=== PATIENT | female | born 1980 | race Caucasian/White ===

== ENCOUNTER → 2020-02-10 13:07 | Outpatient (CLI) | payer BC, SELFPAY ==
--- NOTE | ~2020-02-10 | US_ITS ---
EXAMINATION: US pelvic complete w TV DATE: 02/10/2020 13:32 INDICATION: Menorrhagia Comparison:No prior studies for comparison. TECHNIQUE: Multiple transabdominal and endovaginal sonographic images of the pelvis performed. FINDINGS: The uterus measures 7.5 x 3.9 x 5.2 cm. There is a uterine fibroid anteriorly in the uterus measuring 2.3 x 2 x 2.3 cm The endometrial complex measures 4.9 mm. The right ovary measures 1.9 x 1 x 1.3 cm and the left ovary measures 2.5 x 0.9 x 2.1 cm. There are small follicles in each ovary. There is no free fluid in the pelvis. There are no abnormal masses seen on either side. IMPRESSION: 1. Uterine fibroid measuring 2.3 cm maximum dimension. Reviewed, dictated and finalized at location A. [facility] [place]
== END ==
PROVIDERS: Visit Provider Obstetrics & Gynecology
DX: R10.2 Pelvic and perineal pain (principal); D25.9 Leiomyoma of uterus, unspecified
CPT/HCPCS: 76830; 76856

== ENCOUNTER → 2020-04-03 01:42 | Outpatient (CLI) | payer BC, SELFPAY ==
[2020-04-03 23:34] LABS: SARS-CoV-2 RNA PCR Negative
== END ==
PROVIDERS: Visit Provider Obstetrics & Gynecology
DX: N93.9 Abnormal uterine and vaginal bleeding, unspecified (principal); Z01.818 Encounter for other preprocedural examination
CPT/HCPCS: C9803; U0003; U0005

== ENCOUNTER 2020-04-07 00:50 | Day surgery (SDC) | payer BC, SELFPAY ==
[2020-03-29 16:22] VITALS: BMI 33.9
[2020-04-07] VITALS (9 sets, daily range): BP systolic 108–134; BP diastolic 60–84; PULSE 101–140; RESP 16–20; TEMP 36.5–36.6; O2SAT 95–100; BMI 34.2
--- NOTE | 2020-04-07 05:15 | PM.IMHP ---
H&P: HPI History of Present Illness Date/Time: 04/07/20 05:15 Chief Complaint: Irregular bleeding and pelvic pain. Narrative: Gucci Weldon is a 39 year old female with a history of chronic pelvic pain and irregular bleeding for approximately a year. She has been tried on progesterone only control pill and this has helped but not completely resolved the abnormal bleeding. The menorrhagia has improved but she still had intermenstrual spotting. She was offered combined oral contraceptive pill for regularity she declined. She has been having pelvic pain for years. She had some improvement with physical therapy but not complete resolution. She had ultrasound showed fibroid. She is aware that she may have scar tissue with her history of cesearean sections. She was offered laparoscopy or trial of other hormonal contraception options. Pain was improving. She was offered expectant management but she wants a laparoscopy since has been going on for a while. She has been informed of risk and benefits of laparoscopy and hysteroscopy which she agrees to this. Review of Systems Review of Systems: All systems reviewed & are unremarkable except as noted in HPI and below Cardiovascular: Cardiovascular: Reports no additional cardiovascular complaints, Denies chest pain and Denies dyspnea Respiratory: Respiratory: Reports no additional respiratory complaints and Denies dyspnea Gastrointestinal: Gastrointestinal: Reports abdominal pain, Denies change in bowel habits, Denies diarrhea, Denies nausea and Denies vomiting Genitourinary: Genitourinary: Reports pelvic pain Musculoskeletal: Musculoskeletal: Reports back pain Integumentary/Breasts: Skin/Breast: Reports system reviewed and no additional complaints, except as docu Neurologic: Reports system reviewed and no additional complaints, except as documented PMFSH Past Medical History Medical History Acid reflux Asthma Surgical History Surgical History deliv NOS-unsp x3 H/O tubal ligation History of dilatation and curettage x3 Status post hysteroscopic resection of uterine septum [place] teeth extracted Family History Family History Grandparent Diabetes mellitus Social History Social History Smoking status: Never smoker Alcohol intake: current Drinks per week: 1 Substance use: never Living arrangements: with family Gender identity (if verbalized by the patient): Female Spiritual care concerns: No Meds Home Medications and Allergies Home Medications Medication Instructions Recorded Confirmed Type albuterol sulfate 1 puff INHALATION PRN 03/29/20 04/07/20 History diphenhydramine HCl [Benadryl] 25 mg PO Q6H PRN 03/29/20 04/07/20 History doxylamine succinate [Unisom 25 mg PO HS PRN 03/29/20 04/07/20 History (doxylamine)] famotidine [Pepcid] 40 mg PO DAILY 03/29/20 04/07/20 History ibuprofen 800 mg PO DAILY 03/29/20 04/07/20 History Allergies Allergy/AdvReac Type Severity Reaction Status Date / Time iodine Allergy Intermediate Rash Verified 04/07/20 06:41 shellfish derived Allergy Intermediate rash Verified 04/07/20 06:41 alpha gal Allergy Severe Anaphylaxis Uncoded 04/07/20 06:41 Exam Const: Orientation/consciousness: oriented to person and oriented to place HENMT: Head: normal to inspection Eyes: General: appearance normal, both eyes and all related structures Resp: Effort & Inspection: normal respiratory effort Auscultation: clear to auscultation bilaterally Cardio: Rate: regular rate Rhythm: regular rhythm GI: Inspection: normal to inspection GI Palp: No Rebound tenderness present Neuro: General: oriented to person and oriented to place Cognition (Neuro): normal cognition Extrem: General: norm
--- NOTE | 2020-04-07 07:25 | WPDHPUPDATE1 ---
History and Physical Update Update Date/Time: 04/07/20 07:25 History and Physical has been reviewed, including an updated exam of the patient. There are NO changes in the patient's condition. Risks, benefits, and alternatives have been discussed and questions answered. Patient agrees to proceed with procedure.
[2020-04-07] MEDS: ACETAMINOPHEN 500 MG TABLET 1000 MG PO (07:28)
[2020-04-07] MEDS: KETOROLAC 15 MG/ML VIAL (*BKC) IV PUSH (07:28)
--- NOTE | 2020-04-07 07:54 | P.PNAN_ITS ---
Anes - Initial Pre Proc Eval Procedure: Operation Date: 04/07/20 08:30 Proposed Procedures p Diagnostic Laparoscopy, Hysteroscopy, Dilatation and Curettage, Possible Myosure - Manuel Bashir MD Date/Time: 04/07/20 07:54 Surgeon: Manuel Bashir MD Pre Op Diagnosis: abnormal bleeding Patient Data Age: 39 Gender: F Height: 5 ft 6 in Weight: 96.1 kg Last Vital Signs Temp 36.6 C 04/07/20 07:15 Pulse 104 H 04/07/20 07:15 Resp 18 04/07/20 07:15 BP 125/84 04/07/20 07:15 Pulse Ox 100 04/07/20 07:15 Allergies Allergy/AdvReac Type Severity Reaction Status Date / Time iodine Allergy Intermediate Rash Verified 04/07/20 06:41 shellfish derived Allergy Intermediate rash Verified 04/07/20 06:41 alpha gal Allergy Severe Anaphylaxis Uncoded 04/07/20 06:41 Home Medications Medication Instructions Recorded Confirmed Type albuterol sulfate 1 puff INHALATION PRN 03/29/20 04/07/20 History diphenhydramine HCl [Benadryl] 25 mg PO Q6H PRN 03/29/20 04/07/20 History doxylamine succinate [Unisom 25 mg PO HS PRN 03/29/20 04/07/20 History (doxylamine)] famotidine [Pepcid] 40 mg PO DAILY 03/29/20 04/07/20 History ibuprofen 800 mg PO DAILY 03/29/20 04/07/20 History Patient hx anesthesia problems: none Family hx anesthesia problems: none PMFSH Past Medical History Medical History Acid reflux Asthma Surgical History Surgical History deliv NOS-unsp x3 H/O tubal ligation History of dilatation and curettage x3 Status post hysteroscopic resection of uterine septum [place] teeth extracted Family History Family History Grandparent Diabetes mellitus Social History Social History Smoking status: Never smoker Alcohol intake: current Drinks per week: 1 Substance use: never Living arrangements: with family Gender identity (if verbalized by the patient): Female Spiritual care concerns: No Anes - Eval Final PreProcedure Day of Procedure 04/07/20 07:54 Patient weight: obese Heart: regular rate and rhythm Lungs: clear to auscultation Airway: Mallampati scale class II Neurological: alert and oriented Last oral intake: >/= 8 hours ASA classification: III Emergent: no Anesthetic plan: proceed Anesthesia type and monitoring: general ETT and standard monitoring Informed Consent: The patient's anesthetic plan and its attendant risks and benefits were discussed with the patient/family/POA. Questions were solicited and answers provided to the satisfaction of the patient/family/POA.
[2020-04-07] MEDS: LACTATED RINGERS 1,000 ML 30 ML IV CONT ×2 (07:58→10:00)
[2020-04-07] MEDS: SCOPOLAMINE 1.5 MG PATCH TRANSDERM (07:58)
[2020-04-07] MEDS: ceFAZolin 2 GM/D5W 50 ML 2 GM/50 ML BAG IVPB (08:18)
[2020-04-07] MEDS: BUPIVACAINE HCL 0.5% PF 30 ML VIAL INFILTRATE (08:38)
--- NOTE | 2020-04-07 09:43 | SUR.OPER ---
Hysteroscopy start [id number]
[2020-04-07] MEDS: diphenhydrAMINE HCl INJ 50 MG/ML VIAL 25 MG IV PUSH (10:15)
[2020-04-07] MEDS: ONDANSETRON INJ 4 MG/2 ML VIAL IV PUSH (10:16)
--- NOTE | 2020-04-07 11:12 | PM.PROC ---
Procedure Note - Detailed Date of procedure: 04/07/20 Pre-op diagnosis: abnormal bleeding Chronic pelvic pain Post-op diagnosis: same Procedure performed: 1. Operative laparoscopy 2. Lysis of adhesions 3. Diagnostic hysteroscopy and dilation and curettage. 4. Anterior cul-de-sac biopsies laparoscopically Description of procedure: After informed consent was obtained patient was taken to operating room. She was placed in low lithotomy position and prepped and general endotracheal anesthesia was administered. She was prepped and draped in sterile fashion. Attention was turned to the vagina speculum was inserted single-tooth tenaculum placed on anterior lip of the cervix and acorn uterine manipulator was placed into the cervical canal. The speculum was removed. With new sterile gloves attention was turned to the abdomen a small horizontal incision was made at the umbilicus with the scalpel. The subcutaneous tissue was dissected down to the fascia. The fascia was grabbed with clamps and was incised. The preperitoneal fat was palpated and the peritoneal was entered. by palpation there is noted to be scarring which was of the omentum to just to the inferior of the incision. The Mims port was inserted and secured with 0 Vicryl sutures that were placed at the fascia. Pneumoperitoneum was obtained to 15 mmHg. Patient was placed in Trendelenburg position. Attention was turned to the right side which did not have any adhesions an incision was made and a 5 mm port was inserted under laparoscopic visualization. Using Endo Yamila with cautery the band omentum that was attached to the anterior abdomen immediately below the umbilicus was cauterized and cut from the abdominal area. Prior to removing the scar tissue of the omentum it was noted that the intestines was inferior to this but it looked like the omentum was pulling some of the intestines up but the intestines was at least 5 cm below the attached to the anterior abdomen. Hemostasis was noted at the omentum after it was removed. Attention was turned to the left side and since the scar tissue was removed visualization was obtained and a 5 mm port was inserted. A biopsy was performed at an area on the anterior uterus that was a white plaque is possible endometriosis this was removed with biopsy forceps and cauterized there were also some inflammatory type mucoid areas on the left side of the anterior cul-de-sac and this was biopsied. The posterior cul-de-sac the fallopian tubes were evidence of a prior tubal ligation. The abdominal ports were removed the pneumoperitoneum was released the patient was taken out of Trendelenburg position the 2 fascial sutures that were placed to secure the his son were approximated together and good closure of the fascia was noted. The skin incisions were then closed in a subcuticular fashion with 4 O Vicryl and Dermabond was placed. Attention was then turned to the vagina speculum was inserted the acorn manipulator was removed the uterus was sounded to 8 cm. The cervix was dilated to an 8 Reyes dilator. The hysteroscope was inserted there was noted to be what looked like a remnant of a septum on her right fundal area is septum appeared to be attenuated and to approximately a few cm into the body on the right side of the uterus. Both ostia were visualized. There were no polyps. No other endometrial abnormalities were noted. The uterine lining did appear dyssynchronous. A curettage was performed. The tenaculum was removed hemostasis was noted at the site speculum was removed the patient tolerated procedure well she was extubated in operating room the sponge count was correct she was taken to recovery in stable condition. Anesthesia: GETA Surgeon: Manuel Bashir MD Estimated blood loss (mL): 5 Drains: No Packing: No Pathology: yes (1. Anterior cul de sac biopsies.) Complications: None Condition: stable Disposition: PACU Findings: Adhesion of the omentum to the umbilicus
[2020-04-07] MEDS: oxyCODONE HCL (*CRX) 5 MG TAB IR PO (11:30)
== END 2020-04-07 12:10 | disposition home or self-care (01) ==
PROVIDERS: Visit Provider Obstetrics & Gynecology
PROC: 0UDB8ZZ Extraction of Endometrium, Via Natural or Artificial Opening Endoscopic (ICD-10-PCS; CPT 58558; principal; 2020-04-07 08:30)
DX: N92.0 Excessive and frequent menstruation with regular cycle (principal); R10.2 Pelvic and perineal pain; N73.6 Female pelvic peritoneal adhesions (postinfective); G89.29 Other chronic pain; J45.909 Unspecified asthma, uncomplicated; K21.9 Gastro-esophageal reflux disease without esophagitis
CPT/HCPCS: 49321; 58558; 88305; A9270; J0330; J0690; J1100; J1170; J1200; J1885; J2250; J2405; J2704; J7030; J7120

== ENCOUNTER → 2020-09-15 11:38 | Outpatient (CLI) | payer BC, SELFPAY ==
--- NOTE | ~2020-09-15 | US_ITS ---
EXAMINATION: US thyroid DATE: 09/15/2020 11:54 INDICATION: Nontoxic goiter with palpable lump at the left neck TECHNIQUE: Multiple ultrasound images of the thyroid were obtained. COMPARISON: None. FINDINGS: The right thyroid lobe measures 4.1 x 1.7 x 1.4 cm. The left thyroid lobe measures 3.5 x 2.6 x 3.1 c m. 4.1 x 2.3 x 4.9 cm wider than tall solid isoechoic mass with smooth margins and without echogenic foci in the left thyroid lobe (TI-RADS 3, mildly suspicious , FNA if >=2.5 cm, annual followup is >= 1.5 cm). There are couple smaller predominantly solid hypoechoic wider than tall nodules with smooth margins and without echogenic foci in the right thyroid lobe (TI-RADS 4, moderately suspicious , FNA if >=1.5 cm, annual followup is >=1 cm) measuring 1.4 cm and 5 mm. There is normal echotexture, echog enicity and vascular flow throughout the thyroid gland. IMPRESSION: 1. Multinodular goiter. Recommend ultrasound-guided biopsy of the 4.9 cm left thyroid nodule. Reviewed, dictated and finalized at location A. IMPRESSION: 1. Multinodular goiter. Recommend ultrasound-guided biopsy of the 4.9 cm left t hyroid nodule.
== END ==
PROVIDERS: Visit Provider Obstetrics & Gynecology
DX: E04.2 Nontoxic multinodular goiter (principal)
CPT/HCPCS: 76536

== ENCOUNTER 2020-11-05 01:38 | Day surgery (SDC) | payer BC, SELFPAY ==
[2020-10-28 14:07] VITALS: BMI 32.5
--- NOTE | 2020-11-04 08:28 | PM.IMHP ---
H&P: HPI History of Present Illness Date/Time: 11/04/20 08:28 Chief Complaint: thyroid goiter left, thyroid nodule left, choking, gagging, coughing, neck mass left Narrative: 32-year-old female presents with a neck mass likely very large thyroid goiter per ultrasound. No changes in symptoms no change in history. Presents for planned surgical excision. Review of Systems Constitutional: Constitutional: Denies fatigue, Denies fever(s) and Denies lethargy Eyes: Eyes: Denies blurry vision and Denies change in vision ENT: Reports as per HPI Cardiovascular: Cardiovascular: Denies chest pain Respiratory: Respiratory: Denies cough Endocrine: Endocrine: Denies fatigue Hematologic/Lymphatic: Hematologic/Lymphatic: Denies easy bleeding, Denies easy bruising and Denies lymphadenopathy Allergic/Immunologic: Allergic/Immunologic: Denies seasonal rhinorrhea [facility] Past Medical History Medical History Acid reflux Asthma Surgical History Surgical History deliv NOS-unsp x3 H/O tubal ligation History of dilatation and curettage x3 History of hysteroscopy S/P laparoscopic procedure Status post hysteroscopic resection of uterine septum [place] teeth extracted Family History Family History Grandparent Diabetes mellitus Grandparent Diabetes mellitus Breast cancer Hypertension Mother Depression Other Family history of malignant neoplasm of breast Social History Social History Smoking status: Never smoker Alcohol intake: current Drinks per week: 1 Alcohol use details: VERY RARELY Substance use: never Substance use type: does not use Living arrangements: with family Gender identity (if verbalized by the patient): Female Spiritual care concerns: No Meds Home Medications and Allergies Home Medications Medication Instructions Recorded Confirmed Type famotidine [Pepcid] 20 mg PO BID 03/29/20 10/28/20 History drospirenone (contraceptive) 4 mg 4 mg PO DAILY 90 Days #91 tablet 09/02/20 10/28/20 Rx (28) tablet Allergies Allergy/AdvReac Type Severity Reaction Status Date / Time iodine Allergy Intermediate Rash Verified 10/28/20 14:04 shellfish derived Allergy Intermediate rash Verified 10/28/20 14:04 alpha gal Allergy Severe Anaphylaxis Uncoded 10/28/20 14:04 Exam Const: General: cooperative, healthy appearing, comfortable, well developed and alert HENMT: Head: normal to inspection, normocephalic and atraumatic Ears: hearing grossly normal bilaterally, external ears normal, TM's normal bilaterally and EAC's normal General nose exam: Normal external nose present, Normal nares present, No nasal polyps present, Normal nasal mucous membranes and turbinates present and Normal septum present Face and sinus: normal facial exam Mouth: Yes Normal oral and palatal mucosa present, Yes lip normal, Yes tongue normal, Yes oropharynx normal and Yes moist mucous membranes Teeth and gingiva: dentition normal and gingiva normal Throat: posterior oropharynx normal, tonsils normal and uvula midline Eyes: General: appearance normal, both eyes and all related structures Periorbital: periorbital findings normal Eyelids: eyelids normal Conjunctivae: conjunctivae normal Sclera: sclerae normal Neck: Neck: normal visual inspection, full ROM and no lymphadenopathy Thyroid: abnormal thyroid, asymmetrical, lateral enlargement and mass Lymphatic: no lymphadenopathy noted Resp: Effort & Inspection: normal respiratory effort and able to speak in complete sentences Cardio: Jugular venous distension: no JVD Neuro: Cranial nerves: Yes CN's II-XII intact bilaterally Assessment and Plan Assessment and plan (1) Dysphagia: Code(s): R13.10 - Dysphagia, unspecified
[2020-11-05] VITALS (11 sets, daily range): BP systolic 117–130; BP diastolic 74–87; PULSE 92–133; RESP 10–20; TEMP 36.4–36.8; O2SAT 96–100
--- NOTE | 2020-11-05 07:08 | WPDHPUPDATE1 ---
History and Physical Update Update Date/Time: 11/05/20 07:08 History and Physical has been reviewed, including an updated exam of the patient. There are NO changes in the patient's condition. Risks, benefits, and alternatives have been discussed and questions answered. Patient agrees to proceed with procedure.
[2020-11-05] MEDS: ACETAMINOPHEN 500 MG TABLET 1000 MG PO (07:27)
[2020-11-05] MEDS: LACTATED RINGERS 1,000 ML 30 ML IV CONT ×2 (07:48→10:51)
--- NOTE | 2020-11-05 08:01 | P.PNAN_ITS ---
Anes - Initial Pre Proc Eval Procedure: Operation Date: 11/05/20 07:45 Proposed Procedures p Left Thyroidectomy - Cale Samuels MD Date/Time: 11/05/20 08:01 Surgeon: Cale Samuels MD Pre Op Diagnosis: Left thyroid goiters Patient Data Age: 40 Gender: F Height: 1.69 m Weight: 92.5 kg Last Vital Signs Temp 36.8 C 11/05/20 06:10 Pulse 92 11/05/20 06:10 Resp 16 11/05/20 06:10 BP 130/78 11/05/20 06:10 Pulse Ox 100 11/05/20 06:10 Allergies Allergy/AdvReac Type Severity Reaction Status Date / Time iodine Allergy Intermediate Rash Verified 11/05/20 06:15 shellfish derived Allergy Intermediate rash Verified 11/05/20 06:15 alpha gal Allergy Severe Anaphylaxis Uncoded 10/28/20 14:04 Home Medications Medication Instructions Recorded Confirmed Type famotidine [Pepcid] 20 mg PO BID 03/29/20 11/05/20 History drospirenone (contraceptive) 4 mg 4 mg PO DAILY 90 Days #91 tablet 09/02/20 11/05/20 Rx (28) tablet Patient hx anesthesia problems: post op nausea/vomiting Family hx anesthesia problems: none Results Review: All pre-operative results and documents have been reviewed as part of the pre-operative evaluation. [facility] Past Medical History Medical History Acid reflux Asthma Surgical History Surgical History deliv NOS-unsp x3 H/O tubal ligation History of dilatation and curettage x3 History of hysteroscopy S/P laparoscopic procedure Status post hysteroscopic resection of uterine septum [place] teeth extracted Family History Family History Grandparent Diabetes mellitus Grandparent Diabetes mellitus Breast cancer Hypertension Mother Depression Other Family history of malignant neoplasm of breast Social History Social History Smoking status: Never smoker Alcohol intake: current Drinks per week: 1 Alcohol use details: VERY RARELY Substance use: never Substance use type: does not use Living arrangements: with family Gender identity (if verbalized by the patient): Female Spiritual care concerns: No Anes - Eval Final PreProcedure Day of Procedure 11/05/20 08:01 Patient weight: obese Heart: regular rate and rhythm Lungs: clear to auscultation Airway: Mallampati scale class II Neurological: alert and oriented Last oral intake: >/= 8 hours ASA classification: II Emergent: no Anesthetic plan: proceed Anesthesia type and monitoring: general ETT and standard monitoring Results Review: All pre-operative results and documents have been reviewed as part of the pre-operative evaluation. Informed Consent: The patient's anesthetic plan and its attendant risks and benefits were discussed with the patient/family/POA. Questions were solicited and answers provided to the satisfaction of the patient/family/POA.
[2020-11-05] MEDS: ceFAZolin 2 GM/D5W 50 ML 2 GM/50 ML BAG IVPB (08:03)
[2020-11-05] MEDS: ONDANSETRON INJ 4 MG/2 ML VIAL IV PUSH (11:07)
[2020-11-05] MEDS: fentaNYL CITRATE INJ (*CRX) 100 MCG/2 ML VIAL 25 MCG IV PUSH ×3 (11:08→11:47)
--- NOTE | 2020-11-05 11:09 | P.OP_ITS ---
Procedure Note - Detailed Date of Procedure 11/05/20 Pre-op Diagnosis Left thyroid goiters Post-op Diagnosis same Procedure Performed Left thyroid lobectomy with recurrent laryngeal nerve monitoring Surgeon Cale Samuels MD [employer] Attendant Sami Neri MD Anesthesia general Indications See above, compressive symptoms, left thyroid nodule Findings Large left thyroid lobe approximately 10 cm. Nerve was intact following the procedure but did not stimulate at 1, stimulated at 2 Description of Procedure The patient was correctly identified and consent was verified in the preoperative holding area. The patient was then brought to the operating room and a time-out was performed. General anesthesia was induced and monitoring endotracheal tube was inserted in the patient's airway. Nerve monitor was then initiated. A 2nd time-out was performed. Surgical site marked and injected. Patient was prepped and draped for the procedure. Fifteen blade utilized to dissect through the skin. Bovie electrocautery utilized to dissect down through the platysma superior and inferior platysmal flaps were elevated. Hemostasis was achieved using intermittent application of Bovie electrocautery. The strap muscles were dissected in the midline down to the thyroid the left thyroid lobe was then dissected free of surrounding tissues using cautery and blunt dissection. The superior lobe was released. At this point the inferior lobe was released and rotated anteriorly through the skin incision a small portion of thyroid was left over the cricoid thyroid joint to ensure the nerve was prote cted. The wound was copiously irrigated after the lobe was removed. Ligature was also utilized to remove the thyroid lobe. Total blood loss following the procedures approximately 20 cc. At this point the nerve was dissected as it entered the joint it stimulated at to, but not 1. The wound was again irrigated and a drain placed in the operative bed. The drain was sutured to the skin using a 3-0 nylon suture. The strap muscles were closed in 2 layers in the superior portion using 3 0 interrupted sutures. The skin the platysma was also closed using 3-0 interrupted sutures. The skin was closed in the deep layer using 3-0 interrupted sutures. The skin was closed using skin glue. Closure look adequate and good. Dressings were applied. No immediate swelling or blood was noted in the drain. Following the procedure a glide scope was utilized to view the bilateral vocal cords which did move. Care the patient was turned over to Anesthesiology. There were no immediate complications. I performed all dictated portions. Total blood loss approximately 20 cc. Implants None Estimated Blood Loss 20 Drains Yes Packing No Pathology yes Complications No immediate complications Condition stable Disposition PACU
[2020-11-05] MEDS: SCOPOLAMINE 1.5 MG PATCH TRANSDERM (12:12)
[2020-11-05] MEDS: diphenhydrAMINE HCl INJ 50 MG/ML VIAL 25 MG IV PUSH (12:13)
== END 2020-11-05 13:40 | disposition home or self-care (01) ==
PROVIDERS: Visit Provider Otolaryngology
PROC: (CPT 60220; principal; 2020-11-05 07:45)
DX: E04.2 Nontoxic multinodular goiter (principal); R09.89 Other specified symptoms and signs involving the circulatory and respiratory systems; R05.9 Cough, unspecified; J45.909 Unspecified asthma, uncomplicated; K21.9 Gastro-esophageal reflux disease without esophagitis; E66.9 Obesity, unspecified; Z68.32 Body mass index [BMI] 32.0-32.9, adult
CPT/HCPCS: 60220; 88307; A9270; J0690; J1100; J1170; J1200; J2250; J2405; J2704; J3010; J7120

== ENCOUNTER 2020-12-18 07:26 | Outpatient (CLI) | payer BC, SELFPAY | END 2020-12-18 07:27 | disposition home or self-care (01) | PROVIDERS: Visit Provider Otolaryngology | DX: E04.1 Nontoxic single thyroid nodule (principal) | CPT/HCPCS: 36415; 84443 ==

== ENCOUNTER 2021-03-05 10:41 | Outpatient (CLI) | payer BC, SELFPAY | END 2021-03-05 10:42 | disposition home or self-care (01) | PROVIDERS: Visit Provider Otolaryngology | DX: E04.1 Nontoxic single thyroid nodule (principal); E03.9 Hypothyroidism, unspecified | CPT/HCPCS: 36415; 84443 ==

== ENCOUNTER → 2022-02-16 15:47 | Outpatient (CLI) | payer BC, SELFPAY ==
--- NOTE | ~2022-02-16 | US_ITS ---
US pelvic complete w TV DATE: 02/16/2022 16:16 INDICATION: Benign neoplasm of connective and other soft tissues TECHNIQUE: Real-time imaging via transabdominal and transvaginal approaches COMPARISON: 02/10/2020 pelvic ultrasound examination FINDINGS: The uterus measures 8.6 cm height, 4.8 cm AP and 5.6 cm transverse dimension. The central endometrial echo complex measures up to approximately 7 mm AP dimension. Right ovary measures 4.1 x 2.5 x 4.1 cm, with vascular flow. Left ovary measures 3.0 x 2.1 x 2.0 cm, with vascular flow. No free pelvic fluid collection is noted. IMPRESSION: No significant abnormality Reviewed, dictated and finalized at Location A. Reviewed, dictated and finalized at location A. [place] IMPRESSION: No significant abnormality
== END ==
PROVIDERS: PCP Physician Assistant; Visit Provider Obstetrics & Gynecology
DX: D21.9 Benign neoplasm of connective and other soft tissue, unspecified (principal)
CPT/HCPCS: 76830; 76856

== ENCOUNTER 2022-02-16 16:46 | Outpatient (CLI) | payer BC, SELFPAY ==
[2022-02-21 20:47] LABS: FSH 4.9 mIU/mL (***); LH 2.5 mIU/mL (***); Progesterone 0.4 ng/mL (***)
== END 2022-02-16 16:47 | disposition home or self-care (01) ==
LOC: ANHLAB 16:48
PROVIDERS: PCP Physician Assistant; Visit Provider Obstetrics & Gynecology
DX: N92.6 Irregular menstruation, unspecified (principal)
CPT/HCPCS: 36415; 83001; 83002; 84144

== ENCOUNTER 2022-07-25 09:24 | Outpatient (CLI) | payer BC, SELFPAY | END 2022-07-25 09:25 | disposition home or self-care (01) | LOC: ANHBWCAUD 09:24 | PROVIDERS: PCP Physician Assistant; Visit Provider Physician Assistant | DX: H91.93 Unspecified hearing loss, bilateral (principal) | CPT/HCPCS: 92557; 92567 ==

== ENCOUNTER 2022-09-01 07:50 | Outpatient (CLI) | payer BC, SELFPAY ==
[2022-09-01 08:12] LABS: Hematocrit 39.9 % (37.0-47.0); Hemoglobin 12.9 g/dL (12.0-15.0)
== END 2022-09-01 07:51 | disposition home or self-care (01) ==
LOC: ANHSURGERY 07:53
PROVIDERS: Anesthesiology; PCP Physician Assistant; Visit Provider Obstetrics & Gynecology
DX: N93.9 Abnormal uterine and vaginal bleeding, unspecified (principal); D64.9 Anemia, unspecified; Z01.818 Encounter for other preprocedural examination
CPT/HCPCS: 36415; 85014; 85018; 86850; 86900; 86901

== ENCOUNTER 2022-09-06 01:38 | Day surgery (SDC) | payer BC, SELFPAY ==
[2022-08-29 10:12] VITALS: BMI 34.9
--- NOTE | 2022-08-29 10:17 | PC.NURSE ---
Report to the Outpatient Waiting Room, entrance under the green pavilion located off [facility], at time 6:00 on date 09/06/22. Planned Procedure Time: 7:30. Time changes happen often and if your time is changed the preop area will call you the afternoon before. - You and your visitor will be asked to self-screen and do not enter if you have any COVID symptoms. - A mask is optional within the hospital at this time. Patients may have clear liquids (water, carbonated beverages, clear teas, apple juice) until 3 hours prior to surgery (4:30) with a maximum of 20 ounces. - No food from midnight until time of surgery Take the following medications with a SIP of water the morning of surgery: ESCITALOPRAM, LEVOTHYROXINE, CONTROL DO NOT STOP ANY OF YOUR OTHER PRESCRIPTION MEDICATIONS PRIOR TO SURGERY ?EXCEPT THE FOLLOWING Medications to discontinue per physician: N/A Date to take last dose: N/A Please no make-up, nail australian, hairspray, perfume, deodorant, or body powder the day of surgery. No jewelry (including any body piercings) or valuables the day of surgery, leave them at home. Please take a shower or bath the night before, or the morning of, surgery with an antibacterial soap. Wear comfortable, loose fitting clothing. - Jewelry must be removed prior to entering the operating room. Rings and piercings that are not removed may be cut off. - The hospital will not accept responsibility for valuables. - Please leave all valuables, including medications, at home the day of surgery. If you are going home after surgery, a licensed non emergency services ambulance driver must drive you home. - NO public transportation without another adult if you receive anesthesia. - We recommend that an adult stay with you for 24 hours following discharge. - We also recommend that you do not drive, make important decision, drink alcoholic beverages, or take any drugs that were not prescribed by your health care provider for at least 24 hours after your discharge time. Follow any additional instructions given to you from your surgeon. If you or anyone in your household have experienced Covid symptoms in the past week, please notify your surgeon or the nurse liaison at the phone number below for possible testing. Telephone instructions given to PT - CARLOS WHITE and asked if any additional questions and then verbalized understanding. Patient advised to call surgeon office or pre surgery nurse liaison [phone] if any additional questions.
--- NOTE | 2022-09-05 08:28 | PM.IMHP ---
H&P: HPI History of Present Illness Date/Time: 09/05/22 08:28 Chief Complaint: Hysterectomy Narrative: She is a para 5 with a long history of dysfunctional uterine bleeding and pelvic pain. She has been tried on multiple hormonal options which in the past has helped temporarily and has not been sustained. She has had a prior laparoscopy and hysteroscopy and D&C. With some lysis of adhesions at the time of the laparoscopy. This temporarily helped her pain but it then continued. Her biopsies did not confirm endometriosis. Her pain is worse with cycles. She also continues to have menorrhagia. She did have a recent history of anemia but her recent haemoglobin was normal with iron therapy. She desires definitive treatment of the irregular bleeding and pelvic pain with hysterectomy. She declines trial of all other non definitive options. Review of Systems Review of Systems: All systems reviewed & are unremarkable except as noted in HPI and below Cardiovascular: Cardiovascular: Reports no additional cardiovascular complaints, Denies chest pain and Denies dyspnea Respiratory: Respiratory: Reports no additional respiratory complaints and Denies dyspnea Gastrointestinal: Gastrointestinal: Reports abdominal pain, Denies change in bowel habits, Denies diarrhea, Denies nausea and Denies vomiting Genitourinary: Genitourinary: Reports pelvic pain Musculoskeletal: Musculoskeletal: Reports back pain Integumentary/Breasts: Skin/Breast: Reports system reviewed and no additional complaints, except as docu Neurologic: Reports system reviewed and no additional complaints, except as documented PMFSH Past Medical History Medical History Acid reflux Asthma Surgical History Surgical History deliv NOS-unsp x3 H/O tubal ligation History of dilatation and curettage x3 History of hysteroscopy S/P laparoscopic procedure S/P partial thyroidectomy Status post hysteroscopic resection of uterine septum [place] teeth extracted Family History Family History Grandparent Diabetes mellitus Grandparent Diabetes mellitus Breast cancer Hypertension Mother Depression Other Family history of malignant neoplasm of breast Social History Social History Smoking status: Never smoker Alcohol intake: current Drinks per week: 1 Alcohol use details: VERY RARELY Substance use: never Substance use type: does not use Living arrangements: with family Gender identity (if verbalized by the patient): Female Spiritual care concerns: No Meds Home Medications and Allergies Home Medications Medication Instructions Recorded Confirmed Type fexofenadine-pseudoephedrine ER 1 tablet PO DAILY 09/15/21 08/29/22 History 180 mg-240 mg tablet,ext.release 24 hr (Nila-D 24 Hour) levothyroxine 25 mcg tablet 75 mcg .Route .COMPLEX 01/24/22 08/29/22 History norethindrone 1 mg-ethinyl See Rx Instructions .Route 07/04/22 08/29/22 Rx estradiol 10 mcg (24)-iron 10 .COMPLEX #84 tabs mcg(2) tablet (Lo Loestrin Fe) escitalopram oxalate 10 mg tablet 10 mg PO DAILY 08/10/22 08/29/22 History (Lexapro) famotidine 20 mg tablet (Pepcid) 20 mg PO BID 08/29/22 08/29/22 History ferrous sulfate 325 mg (65 mg 325 mg PO DAILY 08/29/22 08/29/22 History iron) tablet (Iron (ferrous sulfate)) montelukast 10 mg tablet 10 mg PO DAILY 08/29/22 08/29/22 History Allergies Allergy/AdvReac Type Severity Reaction Status Date / Time iodine Allergy Intermediate Rash Verified 08/29/22 10:10 shellfish derived Allergy Intermediate rash Verified 08/29/22 10:10 alpha gal Allergy Severe Anaphylaxis Uncoded 08/29/22 10:10 Exam Const: Orientation/consciousness: oriented to person and oriented to place HE
[2022-09-06] VITALS (10 sets, daily range): BP systolic 117–135; BP diastolic 71–85; PULSE 77–122; RESP 12–20; TEMP 36.4–37.1; O2SAT 93–99
[2022-09-06] MEDS: KETOROLAC 15 MG/ML VIAL (*BKC) IV PUSH (06:30)
[2022-09-06] MEDS: SCOPOLAMINE 1.5 MG PATCH TRANSDERM (06:30)
[2022-09-06] MEDS: ACETAMINOPHEN 500 MG TABLET 1000 MG PO (06:30)
[2022-09-06] MEDS: LACTATED RINGERS 1,000 ML 30 ML IV CONT ×2 (06:30→10:43)
--- NOTE | 2022-09-06 07:01 | WPDANESEPPF ---
Anes - Initial Pre Proc Eval Procedure: Operation Date: 09/06/22 07:30 Proposed Procedures p Robotic Laparoscopic Total Hysterectomy with Bilateral Salpingectomy - Manuel Bashir MD Date/Time: 09/06/22 07:01 Surgeon: Manuel Bashir MD Pre Op Diagnosis: Abnormal Uterine Bleeding, Pelvic Pain Patient Data Age: 41 Gender: F Height: 1.69 m Weight: 99.8 kg Allergies Allergy/AdvReac Type Severity Reaction Status Date / Time iodine Allergy Intermediate Rash Verified 08/29/22 10:10 shellfish derived Allergy Intermediate rash Verified 08/29/22 10:10 alpha gal Allergy Severe Anaphylaxis Uncoded 08/29/22 10:10 Home Medications Medication Instructions Recorded Confirmed Type fexofenadine-pseudoephedrine ER 1 tablet PO DAILY 09/15/21 08/29/22 History 180 mg-240 mg tablet,ext.release 24 hr (Nila-D 24 Hour) levothyroxine 25 mcg tablet 75 mcg .Route .COMPLEX 01/24/22 08/29/22 History norethindrone 1 mg-ethinyl See Rx Instructions .Route 07/04/22 08/29/22 Rx estradiol 10 mcg (24)-iron 10 .COMPLEX #84 tabs mcg(2) tablet (Lo Loestrin Fe) escitalopram oxalate 10 mg tablet 10 mg PO DAILY 08/10/22 08/29/22 History (Lexapro) famotidine 20 mg tablet (Pepcid) 20 mg PO BID 08/29/22 08/29/22 History ferrous sulfate 325 mg (65 mg 325 mg PO DAILY 08/29/22 08/29/22 History iron) tablet (Iron (ferrous sulfate)) montelukast 10 mg tablet 10 mg PO DAILY 08/29/22 08/29/22 History Patient hx anesthesia problems: none Family hx anesthesia problems: none Results Review: All pre-operative results and documents have been reviewed as part of the pre-operative evaluation. [facility] Past Medical History Medical History Acid reflux Asthma Surgical History Surgical History deliv NOS-unsp x3 H/O tubal ligation History of dilatation and curettage x3 History of hysteroscopy S/P laparoscopic procedure S/P partial thyroidectomy Status post hysteroscopic resection of uterine septum [place] teeth extracted Family History Family History Grandparent Diabetes mellitus Grandparent Diabetes mellitus Breast cancer Hypertension Mother Depression Other Family history of malignant neoplasm of breast Social History Social History Smoking status: Never smoker Alcohol intake: current Drinks per week: 1 Alcohol use details: VERY RARELY Substance use: never Substance use type: does not use Living arrangements: with family Gender identity (if verbalized by the patient): Female Spiritual care concerns: No Anes - Eval Final PreProcedure Day of Procedure 09/06/22 07:01 Patient weight: obese Heart: regular rate and rhythm Lungs: clear to auscultation Airway: Mallampati scale class III Neurological: alert and oriented Last oral intake: >/= 8 hours ASA classification: III Emergent: no Anesthetic plan: proceed Anesthesia type and monitoring: general ETT and standard monitoring Results Review: All pre-operative results and documents have been reviewed as part of the pre-operative evaluation. Informed Consent: The patient's anesthetic plan and its attendant risks and benefits were discussed with the patient/family/POA. Questions were solicited and answers provided to the satisfaction of the patient/family/POA.
--- NOTE | 2022-09-06 07:24 | WPDHPUPDATE1 ---
History and Physical Update Update Date/Time: 09/06/22 07:24 History and Physical has been reviewed, including an updated exam of the patient. There are NO changes in the patient's condition. Risks, benefits, and alternatives have been discussed and questions answered. Patient agrees to proceed with procedure.
[2022-09-06] MEDS: ceFAZolin 2 GM/D5W 50 ML 2 GM/50 ML BAG IVPB (07:30)
[2022-09-06] MEDS: BUPivacaine HCL 0.5% PF 30 ML VIAL INFILTRATE (08:03)
[2022-09-06] MEDS: ONDANSETRON INJ 4 MG/2 ML VIAL IV PUSH (10:27)
[2022-09-06] MEDS: fentaNYL CITRATE INJ (*CRX) 100 MCG/2 ML VIAL 25 MCG IV PUSH ×4 (10:46→11:12)
--- NOTE | 2022-09-06 10:46 | PM.OP ---
Procedure Note - Brief Procedure Note - Brief Date of procedure: 09/06/22 Abnormal Uterine Bleeding, Pelvic Pain Post-op diagnosis: Same (#3 extensive abdominal adhesions) Procedure performed: laparoscopic robotic total vaginal hysterectomy and bilateral salpingectomy and extensive lysis of adhesions Surgeon: Manuel Bashir MD Cellular Biologist: Etienne Anesthesia: GETA Findings: uterus mildly enlarged, large adhesion of omentum to mid abdomen, normal ovaries bilaterally Estimated blood loss (mL): 30 Urine output (mL): -800.0 Drains: No Packing: No Pathology: Yes (uterus and cervix and right and left fallopian tubes) Complications: No immediate complications Condition: Stable Disposition: PACU
[2022-09-06] MEDS: diphenhydrAMINE HCl INJ 50 MG/ML VIAL 12.5 MG IV PUSH (11:02)
--- NOTE | 2022-09-06 11:20 | W.PM.PROC2 ---
Procedure Note - Detailed Date of Procedure 09/06/22 Pre-op Diagnosis Abnormal Uterine Bleeding, Pelvic Pain Post-op Diagnosis Same (3. Severe abdominal adhesions) Procedure Performed Laparoscopic robotic assisted total vaginal hysterectomy with bilateral salpingectomy 1. 2. Lysis of adhesions extensive Surgeon Manuel Bashir MD Dispatcher Relay Etienne Santo Anesthesia General Indications Chronic pelvic pain persistent irregular and prolonged bleeding. Resistant to medical management. Patient desires definitive treatment. Findings Uterus mildly enlarged, uterus sound to 9 cm ovaries were normal bilaterally evidence of tubal ligation on both fallopian tube Description of Procedure After informed consent was obtained she was taken to the operating room and general endotracheal anesthesia was administered. She was placed in low lithotomy position.She was and prepped and draped in sterile fashion. Hong catheter placed in bladder. Attention was turned to the vagina speculum was inserted. Single-tooth tenaculum placed on anterior lip of the cervix the uterus sounded to 9cm. The cervix was dilated to a 8 Reyes dilator. A size 8 uterine manipulator was inserted and secured. A size 3.0 colp cup was secured in the vagina. Then attention was turned to the abdomen with new sterile gloves. .25% marcaine injected subcutaneously. An incision was made horizontal 2 cm above the umbilicus. The subcutaneous tissue was dissected with S retractors. Anterior and posterior fascia grasped with Audra clamp and incised. Peritoneum entered. Some surrounding omental adhesions were palpated. The fascia sutures were secured with 0 vicryl. The robotic hysson port and camera inserted into abdomen and secured to fascial sutures. A Pneumoperitoneum of 15 mm per mercury was obtained. Large to moderate amount of the omental adhesions to the anterior abdominal wall were visualized but were not obstructing the lateral abdominal ayoub. The area of the port was free of any tissue. Marcaine was injected subcutaneously. Small incision was made approximately 6 cm lateral to the port on the left side of the port. A size 8mm robotic port was inserted under laparoscopic visualization into the abdomen on the left side. Attention was turned to the right side of the abdomen and an area 6 cm lateral to the right of the midline free of any intestinal tissue was visualized. Marcaine was injected subcutaneously and then 8 mm robotic port was inserted. Under laparoscopic visualization. Superior to this Marcaine was injected an area free of any adhesions and incision was made and an robotic port was inserted under laparoscopic visualization. Patient was placed in Trendelenburg position about 15? to allow the intestinal tissue to come up out of the pelvis. The robotic arms and camera were attached. At the console the adhesions of the omentum to the anterior abdominal wall were lysed to allow better movement of the ports and to not obstruct the pelvis. This lysis of adhesions took approximately 25 minutes. Attention was then turned to the right round ligament which was ligated with the vessel sealer and the anterior leaf of the broad ligament was dissected anteriorly. The right side of the bladder was dissected from the lower uterine segment and upper cervix. The right fallopian tube was ligated from the broad ligament with the vessel sealer. The right ovarian ligament was ligated with the vessel sealer. The a posterior leaf of the broad ligament was further dissected. The ascending uterine vessels were cauterized. The uterine arteries were skeletonized. Attention was turned to the left round ligament which was ligated and the anterior leaf of the broad ligament was dissected anteriorly. The rest of the vesicouterine peritoneum and scar tissue was dissected off of the uterus down to below the palpable cold cup. The left fallopian tube was ligated with the vessel sealer from the broad ligament. The lef
[2022-09-06] MEDS: HYDROcodone/acetaminophen (*CRX) 5-325 MG TABLET 1 TAB PO ×2 (13:04→17:13)
[2022-09-06] MEDS: IBUPROFEN 600 MG TABLET PO ×2 (13:05→19:41)
--- NOTE | 2022-09-06 15:27 | ADMGEN ---
1150-This patient, Gucci Weldon, was admitted to OB 2nd Floor Room 276-00. Patient/family oriented to hospital policies and general routines including ID bracelet, bed and alarms, visiting hours, pain management, procedures, bathroom and other care routines, personal items, smoking policy, room service/diet, and visiting hours. Information on how to activate the Rapid Response Team has been discussed. Patient/Family are encouraged to report perceived risks to care and to ask questions if they do not understand what they are told or what they should do.
[2022-09-06] MEDS: FAMOTIDINE 20 MG TABLET PO (16:07)
[2022-09-06] MEDS: SIMETHICONE 80 MG TAB.CHEW PO (16:07)
[2022-09-07 00:17] VITALS: BP 105/70; PULSE 66; RESP 16; TEMP 36.8; O2SAT 98
[2022-09-07] MEDS: HYDROcodone/acetaminophen (*CRX) 5-325 MG TABLET 1 TAB PO ×2 (00:26→09:15)
[2022-09-07] MEDS: SENNA/DOCUSATE SODIUM TABLET 2 TAB PO (00:27)
[2022-09-07 04:26] VITALS: BP 114/57; PULSE 71; RESP 16; TEMP 36.9; O2SAT 97
[2022-09-07] MEDS: IBUPROFEN 600 MG TABLET PO (04:33)
[2022-09-07] MEDS: SIMETHICONE 80 MG TAB.CHEW PO ×2 (04:34→09:15)
[2022-09-07] MEDS: LEVOTHYROXINE SODIUM 75 MCG TABLET PO (06:30)
[2022-09-07 07:40] VITALS: BP 106/66; PULSE 64; RESP 18; TEMP 36.5; O2SAT 98
--- NOTE | 2022-09-07 08:02 | WPDANESPN ---
Anes - Prog Note Post-Op Date/Time: 09/07/22 08:02 Cardiovascular status: normal Respiratory status: normal Airway patency: baseline Mental status: baseline Post-Op hydration status: normal Vital Signs: Last Vital Signs Temp 36.9 C 09/07/22 04:26 Pulse 71 09/07/22 04:26 Resp 16 09/07/22 04:26 BP 114/57 L 09/07/22 04:26 Pulse Ox 97 09/07/22 04:26 O2 Del Method Room Air 09/07/22 00:17 O2 Flow Rate 10 09/06/22 10:21 Pain Score (VAS): 2 I/O: Intake & Output 09/06/22 09/07/22 09/07/22 23:59 07:59 15:59 Intake Total 600 Balance 600 Post-procedural complaints: none Patient Feedback: Patient satisfied with anesthetic care.
[2022-09-07] MEDS: MONTELUKAST SODIUM 10 MG TABLET PO (09:00)
[2022-09-07] MEDS: ESCITALOPRAM OXALATE 10 MG TABLET PO (09:15)
[2022-09-07] MEDS: LORATADINE/PSEUDOEPHEDRINE (*CRX) 10/240 MG TABLET ER 24 HR 1 TAB PO (09:15)
--- NOTE | 2022-09-07 09:26 | PM.GYNPNOP ---
MAT INSPECTOR - A/P Assessment and plan (1) History of hysterectomy: Code(s): Z90.710 - Acquired absence of both cervix and uterus Status: Acute Assessment and Plan: Postop day 1. Doing well. Will discharge home. Discharge precautions discussed. Postoperative Procedures: Procedures Operation Date: 09/06/22 07:30 Actual Procedure Side Surgeon p Robotic Laparoscopic Total Hysterectomy with Bilateral Salpingectomy Bilateral Manuel Bashir MD Time Spent With Patient Time: Total time spent is greater than 50% in coordination of care (as documented) at patient's floor/unit and/or counseling patient: Time with patient: less than 15 minutes MAT INSPECTOR- PN:Subj Post-Op Subjective Date/time seen: 09/07/22 09:26 Interval history: Has adequate pain control has positive flatus has ambulated in the room discussed her surgery with her. Tolerated food. Exam Const: General: comfortable Resp: Effort & Inspection: normal respiratory effort Auscultation: clear to auscultation bilaterally Cardio: Rate: regular rate GI: Other: Incisions healing well. Appropriate tenderness Extrem: General: no calf tenderness MAT INSPECTOR - PN: Obj Data Vital Signs Vital Signs: Vital Signs - 24 hr 09/06/22 10:21 09/06/22 10:30 09/06/22 10:45 Temperature 98.4 F Pulse Rate 122 H 97 97 Respiratory Rate 12 16 18 Blood Pressure 134/80 128/80 132/78 Pulse Oximetry 99 97 95 Oxygen Delivery Simple Face Mask Room Air Room Air Oxygen Flow Rate 10 09/06/22 11:00 09/06/22 11:15 09/06/22 11:30 Temperature Pulse Rate 96 93 95 Respiratory Rate 20 16 20 Blood Pressure 135/85 135/83 134/81 Pulse Oximetry 93 94 94 Oxygen Delivery Room Air Room Air Room Air Oxygen Flow Rate 09/06/22 11:55 09/06/22 12:30 09/06/22 19:44 Temperature 98.7 F 98.0 F Pulse Rate 89 89 77 Respiratory Rate 16 16 16 Blood Pressure 118/73 117/71 Pulse Oximetry 94 94 97 Oxygen Delivery Room Air Oxygen Flow Rate 09/07/22 00:17 09/07/22 00:17 09/07/22 04:26 Temperature 98.3 F 98.4 F Pulse Rate 66 71 Respiratory Rate 16 16 Blood Pressure 105/70 114/57 L Pulse Oximetry 98 97 Oxygen Delivery Room Air Oxygen Flow Rate 09/07/22 07:40 Temperature 97.7 F Pulse Rate 64 Respiratory Rate 18 Blood Pressure 106/66 Pulse Oximetry 98 Oxygen Delivery Oxygen Flow Rate Intake/Output Intake/Output: Intake & Output 09/04/22 09/05/22 09/06/22 09/07/22 23:59 23:59 23:59 23:59 Intake Total 1690 Output Total 200 Balance 1490 Meds/Results Medications: Active Medications Generic Name Dose Route Start Last Admin Trade Name Freq PRN Reason Stop Dose Admin Hydrocodone Bitart/Acetaminophen 1 tab 09/06/22 10:01 09/07/22 00:26 Hydrocodone/Acetaminophen (*Crx) 5-325 Mg Tablet PO 1 tab Q3H PRN Administration Pain Rated 5 or Less Hydrocodone Bitart/Acetaminophen 1 tab 09/06/22 10:01 Hydrocodone/Acetaminophen (*Crx) 10-325 Mg Tablet PO Q3H PRN Pain Rated 6 or Greater Escitalopram Oxalate 10 mg 09/07/22 09:00 Escitalopram Oxalate 10 Mg Tablet PO DAILY [facility] Famotidine 20 mg 09/06/22 17:00 09/06/22 16:07 Famotidine 20 Mg Tablet PO 20 mg BID OLEGARIO Administration Ibuprofen 600 mg 09/06/22 10:01 09/07/22 04:33 Ibuprofen 600 Mg Tablet PO 600 mg Q6H PRN Administration Cramping Levothyroxine Sodium 75 mcg 09/07/22 06:30 Levothyroxine Sodium 75 Mcg Tablet PO DAILY@0630 OLEGARIO Loratadine/Pseudoephedrine Sulfate 1 tab 09/07/22 09:00 Loratadine/Pseudoephedrine (*Crx) 10/240 Mg Tablet Er 24 Hr PO QAM [facility] Montelukast Sodium 10 mg 09/07/22 09:00 Montelukast Sodium 10 Mg Tablet PO DAILY OLEGARIO Morphine Sulfate 2 mg 09/06/22 11:43 Morphine Sulfate (*Crx) 2 Mg/Ml Inj IV PUSH Q4H PRN Pain Rated 7-10 Naloxone HCl 0.1 mg 09/06/22 10:01 Naloxone Hcl 0.4 Mg/Ml Vial IV PUSH Q2M PRN Respiratory rate les
[2022-09-07] MEDS: FAMOTIDINE 20 MG TABLET PO (09:30)
[2022-09-07 11:30] VITALS: BP 107/65; PULSE 80; RESP 16; TEMP 36.6; O2SAT 97
== END 2022-09-07 11:45 | disposition home or self-care (01) ==
LOC: ANHSURGERY 06:00 → ANHOB2 09-07 09:26
PROVIDERS: PCP Physician Assistant; Visit Provider Obstetrics & Gynecology
PROC: (CPT 58552; principal; 2022-09-06 07:30)
DX: N92.0 Excessive and frequent menstruation with regular cycle (principal); R10.2 Pelvic and perineal pain; D64.9 Anemia, unspecified; E66.9 Obesity, unspecified; Z68.36 Body mass index [BMI] 36.0-36.9, adult; N73.6 Female pelvic peritoneal adhesions (postinfective)
CPT/HCPCS: 58552; S2900; 88307; A9270; J0330; J0690; J1100; J1200; J1885; J2250; J2405; J2704; J2710; J3010; J7030; J7120